=== PATIENT | female | born 1960 | race Caucasian/White ===

== ENCOUNTER 2022-04-14 11:01 | Emergency (ER) | payer BC, OTHER ==
[2022-04-14 11:17] VITALS: BP 136/70
--- NOTE | 2022-04-14 12:20 | XRAY Report ---
PROCEDURE: Foot 3 View RT INDICATIONS: Trauma TECHNIQUE: 3 views of the foot were acquired. COMPARISON: None FINDINGS: Bones: No fractures or dislocations. No suspicious bony lesions. Soft tissues: There is marked dorsal soft tissue swelling. No tibiotalar joint effusion. Achilles t endon appears normal. IMPRESSION: Marked dorsal soft tissue swelling without underlying bony abnormality. If pain persists, consider re peat imaging in 5-7 days to exclude occult fracture. Reviewed by: Isabel Powers MD on 04/14/2022 12:19 PM PST Approved by: Isabel Powers MD on 04/14/2022 12:19 PM [facility] Station ID: [id number]
--- NOTE | 2022-04-14 12:43 | ED Physician Documentation ---
History of Present Illness - Stated complaint Stated Complaint: R FOOT INJURY - Chief complaint Chief Complaint: Trauma Ext - History obtained from History obtained from: Patient - Additonal information Additional information: 61-year-old female with A past medical history of hypertension, atrial fibrillation on Eliquis, CAD who presents with 1 week of right foot pain after dropping a frozen him on it. He states initially it hurt that bad and she continued to make Thanksgiving dinner and has been walking a lot over the course of several days but feels like the pain is worsening. She states is a burning pain that she feels in the dorsum of the foot radiating into the first and second and third toes. She has not been taking any pain medication for her and has not been routinely elevating it. Feels fine when she is at rest with elevated but when she tries to bear weight it hurts more. She states that gotten more purplish in color over the last couple of days, has also some redness to it. She denies any fever, chills, calf pain or swelling, shortness of breath. Review of Systems Ten Systems: 10 systems reviewed and negative (Except as noted in HPI) PD PAST MEDICAL HISTORY - Past Medical History Past Medical History: Yes Cardiovascular: Congestive heart failure, Hypertension, Coronary artery disease, Atrial fibrillation Endocrine/Autoimmune: Type 2 diabetes - Present Medications Home Medications: Ambulatory Orders Medication Instructions Recorded Confirmed Acetaminophen [Acetaminophen Extra 500 mg PO Q4HR PRN 04/14/22 04/14/22 Strength] Albuterol Sulf [Ventolin Hfa 1 - 2 puffs INH Q4HR PRN 04/14/22 04/14/22 Inhaler] Apixaban [Eliquis] 5 mg PO BID 04/14/22 04/14/22 Doxycycline [Vibramycin] 100 mg PO BID 5 Days #10 tablet 04/14/22 Fluticasone 220 Mcg [Flovent] 2 puffs INH DAILY 04/14/22 04/14/22 Furosemide [Lasix] 40 mg PO DAILY 04/14/22 04/14/22 HYDROcod/ACETAM 5/325 [[place] 5/325] 1 tab PO Q8H PRN #10 tablet 04/14/22 Losartan Potassium 25 mg PO DAILY 04/14/22 04/14/22 Pravastatin [Pravachol] 40 mg PO DAILY 04/14/22 04/14/22 Spironolactone [Aldactone] 25 mg PO DAILY 04/14/22 04/14/22 dilTIAZem HCL [Diltiazem 24Hr ER 180 mg PO DAILY 04/14/22 04/14/22 (Xr)] - Allergies Allergies/Adverse Reactions: Allergies Allergy/AdvReac Type Severity Reaction Status Date / Time amoxicillin Allergy Hives Verified 04/14/22 11:17 PD ED PE NORMAL - Vitals Vital signs reviewed: Yes - General General: Alert and oriented X 3, No acute distress, Well developed/nourished - HEENT HEENT: Atraumatic, Moist mucous membranes, Pharynx benign - Derm Derm: Normal color, Warm and dry - Extremities Extremities: No deformity, Normal ROM s pain, No calf tenderness / cord, Other (There is a hematoma over the dorsum of the right foot that is tender to touch with mild erythema surrounding it, no focal fluctuance. Pulses in the foot are 2+, she has full range of motion of the ankle and toes. There is some bruising around the dorsum of the forefoot and into the base of the dedra). No: No tenderness to palpate - Neuro Neuro: Alert and oriented X 3 Eye Opening: Spontaneous Motor: Obeys Commands Verbal: Oriented GCS Score: 15 - Psych Psych: Normal mood, Normal affect Results - Vitals Vitals: Vital Signs - 24 hr 04/14/22 11:14 Temperature 36.6 C Heart Rate 87 Respiratory 16 Rate Blood Pressure 136/70 H O2 Saturation 98 Oxygen O2 Source Room air PD MEDICAL DECISION MAKING - ED course Complexity details: reviewed results, re-evaluated patient, considered differential, d/w patient ED course: This is a very pleasant 61-year-old female who sustained a right foot injury about a week ago when she dropped a frozen turkey on it. On physical she exam she has a hematoma over the dorsum of the right foot with mild surrounding redness, its not particularly warm. There are no skin ulcerations or lesions. Routine x-ray which shows good dorsal soft tissue swelling without underlying bony abnormality. She has no calf pain or fullness and of the suspicion for DVT in Particular as patient is on Eliquis. Her exam is consistent with a hematoma on the dorsum of the foot and possible mild early cellulitis. I recommended treatment with pain control, elevating the leg and utilizing cool compress to help with swelling and discomfort. Have given her a short course of hydrocodone to take Only as needed, and I am also going to give her a short course of doxycycline for treatment of mild cellulitis. Advised patient to return if the redness spreads further up her leg or worsens or she develops a fever or other new concerns and recommended that she follow-up with her primary doctor in a week or so if she is having persistent pain as a main want to reimage at that time however is a 30 been about a week I would expect an occult fracture to likely be visible by now. Departure - Departure Disposition: Home, Self Care Clinical Impression: Hematoma of right foot, Cellulitis of foot Condition: Good Instructions: ED Infec Skin Cellulitis, ED Hematoma Prescriptions: HYDROcod/ACETAM 5/325 [[place] 5/325] 1 tab PO Q8H PRN #10 tablet PRN Reason: Pain Doxycycline [Vibramycin] 100 mg PO BID 5 Days #10 tablet Comments: You presented with right foot pain and swelling. We obtained an x-ray which does not show A break or fracture but you do have significant amount of swelling. This is likely due to a hematoma which is bleeding under the skin. The hematoma will resolve over time and it can take days to even months for the hematoma to completely resolve. I recommend that you keep your foot elevated utilize ice pack several times a day over the next several days and then you can progressively increase your activity. There is some redness and tenderness of the skin on the top of the foot which is concerning for a possible mild skin infection called cellulitis and I am going to treat this with an antibiotic that you should take for the next 5 days. If you feel like the redness is swelling or develop a fever or other new concerns, return to the ER.
== END 2022-04-14 12:55 | disposition home or self-care (01) ==
LOC: ED 11:01
DX: S90.31XA Contusion of right foot, initial encounter (principal); W20.8XXA Other cause of strike by thrown, projected or falling object, initial encounter; Y93.G1 Activity, food preparation and clean up; L03.115 Cellulitis of right lower limb; Z79.01 Long term (current) use of anticoagulants
CPT/HCPCS: 99282; 99283